=== PATIENT | male | born 1980 | race Caucasian/White ===

== ENCOUNTER → 2024-09-03 13:25 | Outpatient (REF) | payer OTHER, SELFPAY | LOC: RAD 13:25 | PROVIDERS: ATTENDING PHYSICIAN Family Medicine | DX: R59.9 Enlarged lymph nodes, unspecified (principal) | CPT/HCPCS: 70492; Q9967 ==

== ENCOUNTER → 2024-09-16 08:35 | Outpatient (REF) | payer OTHER, SELFPAY | LOC: PET 08:35 | PROVIDERS: ATTENDING PHYSICIAN Otolaryngology | DX: C44.42 Squamous cell carcinoma of skin of scalp and neck (principal) | CPT/HCPCS: 78815; A9552 ==

== ENCOUNTER 2024-10-09 06:16 | Day surgery (SDC) | payer OTHER, SELFPAY ==
[2024-10-09 10:11] VITALS: BMI 22.4
[2024-10-09 10:15] VITALS: BP 119/80
[2024-10-09] MEDS: NORMOSOL-R/PLASMALYTE-A 1000 IV (10:24)
[2024-10-09] MEDS: TYLENOL 1000 MG PO (10:24)
[2024-10-09 12:45] VITALS: BP 117/84; BP 119/80
[2024-10-09] MEDS: SUBLIMAZE 25 MCG IV ×2 (12:59→13:15)
[2024-10-09 13:00] VITALS: BP 120/85
[2024-10-09 13:15] VITALS: BP 115/83
[2024-10-09 13:40] VITALS: BP 117/76
[2024-10-09 14:05] VITALS: BP 107/73
== END 2024-10-09 14:16 | disposition home or self-care (01) ==
LOC: SDS 06:16
PROVIDERS: ATTENDING PHYSICIAN Otolaryngology
DX: C79.89 Secondary malignant neoplasm of other specified sites (principal); R22.1 Localized swelling, mass and lump, neck
CPT/HCPCS: 31525; 21555; 88307; 88342